=== PATIENT | male | born 1945 | race Caucasian/White ===

== ENCOUNTER 2017-08-31 18:43 | Emergency (ER) | payer MEDICARE, BC ==
[~2017-08-31] VITALS: Ht 167.6 cm; Wt 70.3 kg
[2017-08-31 19:15] VITALS: BP 150/84
[2017-08-31] MEDS ORDERED: Tetanus/Diptheria/Pertussis Vaccine 0.5ml Syr IM ONE (19:30)
[2017-08-31] MEDS ORDERED: ASPIRIN81 MG ORAL (19:34)
[2017-08-31] MEDS ORDERED: LIPITOR20 MG ORAL (19:34)
[2017-08-31] MEDS ORDERED: LISINOPRIL2.5 MG ORAL (19:34)
[2017-08-31] MEDS ORDERED: TIZANIDINE HCL4 MG ORAL (19:34)
[2017-08-31] MEDS ORDERED: LORATADINE10 M3 PO (19:34)
[2017-08-31] MEDS ORDERED: JANUMET 50-1,01 EACH ORAL (19:34)
[2017-08-31] MEDS ORDERED: TRAMADOL HCL50 MG ORAL (19:34)
[2017-08-31] MEDS ORDERED: CENTRUM ADULTS1 EACH PO (19:34)
[2017-08-31] MEDS ORDERED: BYSTOLIC10 MG ORAL (19:34)
[2017-08-31] MEDS ORDERED: PANTOPRAZOLE SO40 MG ORAL (19:34)
[2017-08-31] MEDS ORDERED: LEFLUNOMIDE20 MG PO (19:34)
[2017-08-31] MEDS ORDERED: PRASUGREL HCL10 MG PO (19:36)
[2017-08-31] MEDS ORDERED: Bacitracin Oint UD TOPIC ONE (20:45)
--- NOTE | 2017-08-31 20:47 | Emergency Room Report ---
History of Present Illness General Chief Complaint: Laceration Source: Patient Present Illness HPI 72-year-old male presents to the emergency department complaining of laceration to the posterior scalp status post fall prior to arrival. Patient reports mechanical trip and fall over a chair she denies loss of consciousness he states he is taking blood thinning medications. He does not know when his last tetanus vaccination was. Denies nausea, vomiting and states that his pain is minimal at this time and describes it as discomfort with palpation. Patient reports mild continued bleeding. Denies CP, Palpitations, LOC, AMS, dizziness, Changes in Vision, Sensation, paresthesias, or a sudden severe headache. Allergies: Coded Allergies: No Known Allergies (Unverified , 08/31/17) Patient History Past Medical History: see triage record Past Surgical History: none Pertinent Family History: none Reviewed Nursing Documentation: PMH: Agreed, PSxH: Agreed Nursing Documentation-PMH Hx Cardiac Problems: Yes - Stents x6; [place]; High Cholesterol Hx Hypertension: Yes Hx Diabetes: Yes Review of Systems All Other Systems: negative except mentioned in HPI Physical Exam Vital Signs Date Time Temp Pulse Resp B/P (MAP) Pulse Ox O2 Delivery O2 Flow Rate FiO2 08/31/17 18:50 97.9 92 16 157/87 97 Room Air Sp02 EP Interpretation: reviewed, normal General Appearance: no apparent distress, alert, GCS 15, non-toxic Head: normocephalic, other - posterior scalp swelling / contusion and laceration noted. Eyes: bilateral eye normal inspection, bilateral eye PERRL, bilateral eye EOMI ENT: hearing grossly normal, normal voice Neck: full range of motion, no meningismus, no bony tend Respiratory: chest non-tender, lungs clear, normal breath sounds, speaking full sentences Cardiovascular #1: regular rate, rhythm Rectal: deferred Genitourinary: normal inspection Musculoskeletal: back normal, gait/station normal, normal range of motion, non- tender Neurologic: alert, oriented x3, responsive, motor strength/tone normal, sensory intact, normal gait, speech normal, no pronator, grossly normal Psychiatric: judgement/insight normal Skin: normal color, no rash, warm/dry, well hydrated, laceration - 5 cm laceration to posterior scalp Lymphatic: no adenopathy Procedures Laceration/Wound Repair Laceration/Wound Repair : Consent: Verbal Wound Location: head Wound's Depth, Shape: superficial Wound Length (cm): 5 Wound Explored: clean Irrigated w/ Saline (ccs): 200 Anesthesia: Lidocaine w/ Epi Volume Anesthetic (ccs): 2 Wound Debrided: minimal Wound Repaired With: tara Layer Closure?: No Sterile Dressing Applied?: Yes Splint Applied?: No Sling Applied?: No Patient Tolerated: Well Complications: None Medical Decision Making PA Attestation Dr. Wolf is my supervising physician whom pt. management has been discussed with. Diagnostic Impression: Primary Impression: Laceration Additional Impression: Head injury, acute, without loss of consciousness Qualified Codes: S09.90XA - Unspecified injury of head, initial encounter ER Course 72-year-old male presents to the emergency department complaining of laceration to the posterior scalp status post fall prior to arrival. Patient reports mechanical trip and fall over a chair she denies loss of consciousness he states he is taking blood thinning medications. He does not know when his last tetanus vaccination was. Denies nausea, vomiting and states that his pain is minimal at this time and describes it as discomfort with palpation. Patient reports mild continued bleeding. Denies CP, Palpitations, LOC, AMS, dizziness, Changes in Vision, Sensation, paresthesias, or a sudden severe headache. Ddx considered but are not limited to laceration, tendon injury, cellulitis, amputation, Subdural hematoma or intracranial bleed just to name a few. Vital signs: are WNL, pt. is afebrile H&PE are most consistent with: posterior scalp laceration approx 5 cm in length. ORDERS: -CT HEAD NO CONTRAST: No evidence of acute fracture, hemorrhage, or intracranial process. Per official radiology report- Please see report for specific details. ED INTERVENTIONS: -Tetanus vaccine was administered as pt. vaccination status was unknown. - The wound was copiously irrigated with normal saline, and explored for foreign body for which no FB was found. - pt. is anesthetized with 1%lidocaine w. epi. - The wound was approximated and closed using 6 tara. -Bacitracin and sterile dressing is applied. Discussed with patient: That we make every effort to approximate the laceration as best as we can so that scarring will be as cosmetically pleasing as possible with our limited cosmetic skill set in the Emergency dept. Regardless of our best efforts there will be scarring after laceration repair. The extent of scarring is unknown at this time. DISCHARGE: At this time pt. is stable for d/c to home. Will provide printed patient care instructions, and any necessary prescriptions. Care plan and follow up instructions have been discussed with the patient prior to discharge. CT/MRI/US Diagnostic Results CT/MRI/US Diagnostic Results : Imaging Test Ordered: CT Head Impression No evidence of acute fracture, hemorrhage, or intracranial process. Per official radiology report- Please see report for specific details. Last Vital Signs Date Time Temp Pulse Resp B/P (MAP) Pulse Ox O2 Delivery O2 Flow Rate FiO2 08/31/17 18:50 97.9 92 16 157/87 97 Room Air Disposition: HOME, SELF-CARE Condition: Stable Scripts Acetaminophen* (TYLENOL EXTRA STRENGTH*) 500 Mg Tablet 500 MG ORAL Q6H Y for Mild Pain/Temp > 100.5, #30 TAB 0 Refills Prov: Nadja Ramsey 08/31/17 Bacitracin/Polymyxin B Sulfate (BACITRACIN-POLYMYXIN OINTMENT) 28.35 Gm Oint...g. 1 APPLIC TP BID, #28.3 GM Prov: Nadja Ramsey 08/31/17 Patient Instructions: Laceration Care, Adult Additional Instructions: Take medications as directed. ----Do not submerging water, may resume normal showering after 48 hours. Keep area clean and dry. May apply small amount of antibiotic ointment once daily , it is important to not overuse ointment as this will delay healing due to excessive moisture. Follow up with a Primary Care Provider in 3-5 days, even if your symptoms have resolved. --Please review list of primary care clinics, if you do not already have a primary care provider Return sooner to ED if new symptoms occur, or current symptoms become worse. - Please note that this Emergency Department Report was dictated using [employer] dispatcher technology software, occasionally this can lead to erroneous entry secondary to interpretation by the dictation equipment. Nadja Ramsey Aug 31, 2017 20:47
[2017-08-31] MEDS ORDERED: BACITRACIN-P28.35 GM TP (20:48)
[2017-08-31] MEDS ORDERED: TYLENOL EXTRA500 MG ORAL (20:48)
[2017-08-31 21:40] VITALS: BP 145/79
[2017-08-31 21:45] VITALS: BP 145/79
--- NOTE | 2017-09-01 08:49 | Diagnostic Imaging Report ---
Indication: Reason For Exam: PAIN Technique: spiral acquisitions obtained through the brain. Angled axial and coronal 5 x 5 mm slices were reconstructed. No IV contrast utilized. Radiation dose was minimized using automated exposure control Total dose length product 1432.21 mGycm. CTDIvol(s) 70.38 mGy Comparison: none FINDINGS: No acute hemorrhage or edema. No mass effect or midline shift. There is age-related enlargement of the ventricles and extra axial CSF spaces. There is periventricular deep white matter ischemic change. Normal swan-white differentiation. Visualized orbits are unremarkable. There is ethmoid sinus mucosal thickening.. Intact calvarium. There is evidence of soft tissue contusion and laceration in the left high parietal scalp. IMPRESSION: Chronic and age-related changes. Negative for acute intracranial bleed or mass effect Evidence of high parietal scalp soft tissue injury on the left This agrees with the preliminary interpretation provided overnight by [facility]. The CT scanner at [facility] is accredited by the [employer] and the scans are performed using protocols designed to limit radiation exposure to as low as reasonably achievable to attain images of sufficient resolution adequate for diagnostic evaluation
== END 2017-08-31 21:45 | disposition home or self-care (01) ==
LOC: EMR 19:20
DX: S01.01XA Laceration without foreign body of scalp, initial encounter (principal); S09.90XA Unspecified injury of head, initial encounter; Z23 Encounter for immunization; I10 Essential (primary) hypertension; E11.9 Type 2 diabetes mellitus without complications; I25.2 Old myocardial infarction; Z95.5 Presence of coronary angioplasty implant and graft; E78.00 Pure hypercholesterolemia, unspecified; W01.0XXA Fall on same level from slipping, tripping and stumbling without subsequent striking against object, initial encounter; Y92.9 Unspecified place or not applicable
CPT/HCPCS: 70450; 90471; 90715; 99283

== ENCOUNTER 2017-11-27 12:38 | Emergency (ER) | payer MEDICARE, BC ==
[~2017-11-27] VITALS: Ht 167.6 cm; Wt 70.3 kg
[~2017-11-27 12:38] MED LIST: ASPIRIN81 MG ORAL; BACITRACIN-P28.35 GM TP; BYSTOLIC10 MG ORAL; CENTRUM ADULTS1 EACH PO; JANUMET 50-1,01 EACH ORAL; LEFLUNOMIDE20 MG PO; LIPITOR20 MG ORAL; LISINOPRIL2.5 MG ORAL; LORATADINE10 M3 PO; PANTOPRAZOLE SO40 MG ORAL; PRASUGREL HCL10 MG PO; TIZANIDINE HCL4 MG ORAL; TRAMADOL HCL50 MG ORAL; TYLENOL EXTRA500 MG ORAL
[2017-11-27 12:58] VITALS: BP 148/82
--- NOTE | 2017-11-27 13:05 | Emergency Room Report ---
History of Present Illness General Chief Complaint: Multiple Trauma/Fall Source: Patient, Medical Record Present Illness HPI Patient presents with complaints of laceration to the scalp area This happened just prior to arrival Patient essentially describes a mechanical fall backwards He is on effient for blood thinning Has local pain to the specific site Denies any lapse of consciousness Denies any dizziness denies any chest pain or shortness of breath denies any focal weakness Allergies: Coded Allergies: No Known Allergies (Unverified , 08/31/17) Patient History Past Medical History: see triage record Pertinent Family History: none Reviewed Nursing Documentation: PMH: Agreed; PSxH: Agreed Nursing Documentation-PM Past Medical History: No History, Except For Hx Cardiac Problems: Yes - Stents x6; [place]; High Cholesterol Hx Hypertension: Yes Hx Diabetes: Yes Review of Systems All Other Systems: negative except mentioned in HPI Physical Exam Vital Signs Date Time Temp Pulse Resp B/P (MAP) Pulse Ox O2 Delivery O2 Flow Rate FiO2 11/27/17 12:40 97.7 82 12 148/82 97 Room Air 97.7 Sp02 EP Interpretation: reviewed, normal General Appearance: well appearing, no apparent distress Head: other - 2 cm laceration top parietal scalp Eyes: bilateral eye PERRL, bilateral eye EOMI ENT: hearing grossly normal, normal pharynx, TMs + canals normal, uvula midline Neck: full range of motion, supple, no meningismus, no bony tend Respiratory: lungs clear, normal breath sounds, no rhonchi, no respiratory distress, no retraction, no accessory muscle use Cardiovascular #1: normal peripheral pulses, regular rate, rhythm, no edema, no gallop, no JVD, no murmur Gastrointestinal: normal bowel sounds, non tender, soft, no mass, no organomegaly, non-distended, no guarding, no hernia, no pulsatile mass, no rebound Genitourinary: no CVA tenderness Musculoskeletal: normal inspection Neurologic: oriented x3, responsive, site leasing agent III-XII nml as tested, motor strength/ tone normal, sensory intact Psychiatric: mood/affect normal Skin: palpation normal, other - As above Lymphatic: normal inspection, no adenopathy Procedures Laceration/Wound Repair Laceration/Wound Repair : Consent: Verbal Wound Location: head Wound's Depth, Shape: into muscle Wound Length (cm): 2 Wound Explored: clean Irrigated w/ Saline (ccs): 50 Betadine Prep?: No Wound Debrided: minimal Wound Repaired With: tara - 6 Sterile Dressing Applied?: No Patient Tolerated: Well Complications: None Medical Decision Making Diagnostic Impression: Primary Impression: Scalp laceration ER Course Patient presents with laceration to the scalp No signs of any loss of consciousness patient is on antiplatelet medication Therefore CT head was obtained No obvious acute pathology patient has a hematoma now palpable in the occipital region The area was cleansed and 6 tara were placed in interrupted fashion with appropriate approximation Please refer to her note for full specifics Patient did have a pressure gauze and Kerlix wrapped afterwards Patient is observed I had a discussion regarding head injuries and blood thinners The initial exam does not reveal any acute pathology However patient still has risk of recurrent intracranial hemorrhage Is given precautions regarding return to the emergency room And at this time is discharged in stable for close outpatient follow-up CT/MRI/US Diagnostic Results CT/MRI/US Diagnostic Results : Impression CT head no acute disease Last Vital Signs Date Time Temp Pulse Resp B/P (MAP) Pulse Ox O2 Delivery O2 Flow Rate FiO2 11/27/17 12:58 97.7 82 12 148/82 97 Room Air 97.7 Status: improved Disposition: HOME, SELF-CARE Condition: Improved Additional Instructions: Patient is provided with the discharge instructions notified to follow up with primary doctor in the next 2-3 days otherwise return to the er with any worsening symptoms. Please note that this report is being documented using [email or web address] technology. This can lead to erroneous entry secondary to incorrect interpretation by the dictating instrument. Avinash Baptiste DO Nov 27, 2017 13:05
--- NOTE | 2017-11-27 13:43 | Diagnostic Imaging Report ---
Indication: Reason For Exam: PAIN Technique: spiral acquisitions obtained through the brain. Angled axial and coronal 5 x 5 mm slices were reconstructed. No IV contrast utilized. Radiation dose was minimized using automated exposure control Total dose length product 1411.05 mGycm. CTDIvol(s) 70.38 mGy Comparison: 08/23/2017 FINDINGS: No acute hemorrhage or edema. No mass effect or midline shift. There is age-related enlargement of the ventricles and extra axial CSF spaces. There is periventricular deep white matter ischemic change. Normal swan-white differentiation. Visualized orbits are unremarkable. There is ethmoid sinus disease and minimal sphenoid sinus disease. Intact calvarium. There is a left high parietal scalp hematoma, location of which is similar to that on the prior study although currently larger. IMPRESSION: Chronic and age-related changes. Negative for acute intracranial bleed or mass effect Evidence of left high parietal scalp soft tissue injury, location which is similar to that seen previously The CT scanner at [facility] is accredited by the [employer] and the scans are performed using protocols designed to limit radiation exposure to as low as reasonably achievable to attain images of sufficient resolution adequate for diagnostic evaluation
[2017-11-27 14:57] VITALS: BP 124/78
== END 2017-11-27 15:00 | disposition home or self-care (01) ==
LOC: EMR 13:16
DX: S01.01XA Laceration without foreign body of scalp, initial encounter (principal); W19.XXXA Unspecified fall, initial encounter; Y92.9 Unspecified place or not applicable; I10 Essential (primary) hypertension; E11.9 Type 2 diabetes mellitus without complications; Z95.5 Presence of coronary angioplasty implant and graft; Z79.02 Long term (current) use of antithrombotics/antiplatelets; R51 Headache
CPT/HCPCS: 70450; 99284

== ENCOUNTER 2017-11-28 05:52 | Emergency (ER) | payer MEDICARE, BC ==
[~2017-11-28] VITALS: Ht 167.6 cm; Wt 70.3 kg
--- NOTE | 2017-11-28 06:36 | Emergency Room Report ---
History of Present Illness General Chief Complaint: Wound Recheck/Suture Removal Source: Patient Present Illness HPI The patient is a 72-year-old male who presented for wound recheck after a recent fall. Patient been taking Prasugrel as well as aspirin. The patient denies any worsening headache numbness or weakness.The patient been seen in the 1 day prior to arrival and had recent imaging for evaluation. Patient was sent back in by his physician for repeat CT imaging as well as wound recheck Allergies: Coded Allergies: No Known Allergies (Unverified , 08/31/17) Patient History Past Medical History: see triage record Reviewed Nursing Documentation: PMH: Agreed; PSxH: Agreed Nursing Documentation-PMH Hx Cardiac Problems: Yes - Stents x6; [place]; High Cholesterol Hx Hypertension: Yes Hx Diabetes: Yes Review of Systems All Other Systems: negative except mentioned in HPI Physical Exam Vital Signs Date Time Temp Pulse Resp B/P (MAP) Pulse Ox O2 Delivery O2 Flow Rate FiO2 11/28/17 06:04 98.3 81 16 131/79 95 Room Air 98.2 General Appearance: well appearing, no apparent distress, alert, GCS 15, non- toxic Head: normocephalic, atraumatic ENT: hearing grossly normal, normal voice Neck: full range of motion, supple Respiratory: no respiratory distress, speaking full sentences Cardiovascular #1: normal peripheral pulses, regular rate, rhythm Musculoskeletal: no calf tenderness Neurologic: normal gait Psychiatric: mood/affect normal Skin: no rash Medical Decision Making Diagnostic Impression: Primary Impression: Encounter for wound re-check ER Course Patient presented for wound check. Differential diagnoses included was not limited to intracranial hemorrhage, wound infection, foreign body among others. Patient has a benign exam and does not appear to require any laboratory testing at this time. Because the patient's previous head injury and anticoagulation. A repeat CT imaging will be performed.CT imaging of the head read by radiology showed no evidence of acute intracranial hemorrhage or fracture. There is noted to be a small subgaleal hematoma unchanged from previous. The patient is advised follow-up with his school based therapist. The patient is to return if he had any concerns. Last Vital Signs Date Time Temp Pulse Resp B/P (MAP) Pulse Ox O2 Delivery O2 Flow Rate FiO2 11/28/17 06:04 98.3 81 16 131/79 95 Room Air 98.2 Status: improved Disposition: HOME, SELF-CARE Condition: Stable Referrals: NOT CHOSEN IPA/,REFERRING (PCP) Stephen Amador Nov 28, 2017 06:36
[2017-11-28 07:35] VITALS: BP 131/79
--- NOTE | 2017-11-28 15:41 | Diagnostic Imaging Report ---
Indications: Altered mental status Technique: Spiral acquisitions obtained through the brain. Angled axial and coronal 5 x 5 mm slices were reconstructed. Total dose length product 1428.38 mGycm. CTDI vol(s) 70.38 mGy. Dose reduction achieved using automated exposure control Comparison: 11/27/2017 Findings: There is a midline parietal scalp hematoma and laceration with skin tara. No underlying calvarial abnormality. No acute intrarenal hemorrhage or edema, mass effect, or midline shift. There is age-related enlargement of the ventricles and extra-axial CSF spaces. Visualized orbits are unremarkable. There is bilateral ethmoid sinus disease. No significant interim change except that the skin tara are new Impression: Negative for acute bleed or mass effect Evidence of high parietal scalp soft tissue injury Ethmoid sinus disease bilaterally The CT scanner at [facility] is accredited by the [employer] and the scans are performed using protocols designed to limit radiation exposure to as low as reasonably achievable to attain images of sufficient resolution adequate for diagnostic evaluation.
== END 2017-11-28 07:39 | disposition home or self-care (01) ==
LOC: EMR 06:17
DX: S01.01XD Laceration without foreign body of scalp, subsequent encounter (principal); X58.XXXD Exposure to other specified factors, subsequent encounter; R41.82 Altered mental status, unspecified; Z48.01 Encounter for change or removal of surgical wound dressing; J32.2 Chronic ethmoidal sinusitis
CPT/HCPCS: 70450; 99284